=== PATIENT | female | born 1955 | race Caucasian/White ===

== ENCOUNTER → 2017-09-21 | Outpatient (CLI) | payer OTHER ==
[~2017-09-21] MED LIST: ATORVASTATIN CA20 MG PO; BENICAR20 MG PO; CENTRUM SILVER1 EAC3; COQ-10100 MG; CYMBALTA30 MG; LEVOTHYROXINE50 MCG PO; VITAMIN D1000 UNI1 PO; XYZAL5 MG; [UNRECOGNIZED DRUG - OTHER] PO
--- NOTE | 2017-09-21 08:48 | Diagnostic Imaging Report ---
PROCEDURE:US GALLBLADDER COMPARISON:02/17/2017. INDICATIONS:Gallbladder Polyp TECHNIQUE: Mclaughlin-scale and color doppler transverse and longitudinal images of the right upper quadrant of the abdomen were obtained. FINDINGS: Liver: 16.7 cm in right mid-clavicular line. Normal parenchymal echogenicity. No masses. Main portal vein: 0.9 cm in caliber. Hepatopedal flow. Gallbladder: Previously described polypoid lesion the gallbladder is stable to slightly decreased in size, measuring 0.5 x 0.4 x 0.4 cm. Two adjacent smaller polypoid lesions are identified projecting into the gallbladder lumen each measuring 4 mm in maximum dimension. No calculi, wall thickening, or pericholecystic fluid. Common Bile Duct: 0.3 cm in caliber. Sonographic Armstrong's sign: Negative Right kidney: 9.8 cm in length. Normal renal cortical echogenicity. No solid masses or hydronephrosis. Pancreas: The visualized portions are unremarkable. Inferior vena cava: Patent Aorta: Non-aneurysmal Ascites: None in the right upper quadrant of the abdomen. CONCLUSION: 3 small polypoid lesions within the gallbladder, the largest of which measures 5 mm. Annual sonographic followup is suggested to document stability. Dictated by: Ken Calixto M.D. on 09/21/2017 at 8:48 Electronically approved by: Ken Calixto M.D. on 09/21/2017 at 8:48
== END ==
LOC: US 07:33
PROVIDERS: ATTEND Surgery
DX: K82.4 Cholesterolosis of gallbladder (principal)
CPT/HCPCS: 76705